=== PATIENT | female | born 1945 | race Caucasian/White ===

== ENCOUNTER → 2023-07-16 | Outpatient (CLI) | payer MEDICARE, SELFPAY ==
--- NOTE | 2023-07-16 09:46 | NM_ITS ---
CLINICAL: 78-year-old female with history of compression fracture. WHOLE BODY 99m Tc MDP RADIONUCLIDE BONE SCINTIGRAPHY COMPARISON: None available FINDINGS: Following the intravenous administration of 27.9 mCi of 99m Tc MDP, whole body bone images reveal: 1. Increased radiopharmaceutical concentration is defined in the fourth lumbar vertebra diffusely and right mid femoral diaphysis, right distal femoral metaphysis, upper thoracic spine posteriorly on the left. 2. Facilitated uptake is noted in the bilateral wrist articulations, the medial tibial compartment of the right knee, sternoclavicular compartment of the right shoulder. 3. The remaining skeletal structures are scintigraphically unremarkable with normal-appearing renal images and urinary bladder activity identified. NM/Bone Scan Whole Body IMPRESSION: 1. The increase in tracer uptake noted in the fourth lumbar vertebra is commensurate with trauma-compression fracture. In patients > 65 years of age, increased radiopharmaceutical concentration on bone scintigraphy in uncomplicated documented fracture, may take > 18 months for complete resolution. (Josh et al, Seminars of [employer] Medicine, 13:104, 1983). 2. Enhanced tracer concentration defined in the right mid femoral diaphysis and distal right femoral metaphysis, the upper thoracic spine posteriorly on the left may be further investigated with plain film radiography. 3. Increased radiotracer defined in the wrist articulations bilaterally and right knee, sternoclavicular compartment of the right shoulder. Electronically Signed: Luis Sykes DO at 13:51 EDT ,
== END | disposition home or self-care (01) ==
PROVIDERS: PCP Family Medicine
DX: S22.000A Wedge compression fracture of unspecified thoracic vertebra, initial encounter for closed fracture (principal)
CPT/HCPCS: 78306; A9503

== ENCOUNTER → 2024-05-10 | Outpatient (CLI) | payer MEDICARE, SELFPAY ==
--- NOTE | 2024-05-10 14:36 | ST.MBS ---
Modified Barium Swallow Patient Information Study Date: 05/10/24 Study Time: 13:00 Diagnosis: Dysphagia R13.10 Referring Physician: Obdulia Martinez Reason for Referral: Assess swallow function, assess risk for aspiration, and determine recommendations for least restrictive diet textures and compensatory strategies to facilitate safe po intake. Medical History: PMH per patient report: Kyphosis, compressed cervical vertebrae, fractures of vertebrae w/ no spinal surgery required, falls w/ injury of head and neck (no brain injury or cervical fx from falls, but laceration requiring ariel in back of head), sx for removal of portion of stomach and small bowel (1997), COPD, asthma, PNA 2X (>30 years ago). The patient reports swallowing difficulty for ~1 year characterized by difficulty getting food/drink/pills down, sensation of food/drink/pills caught in the throat, pills will come back up, fear of choking 1X taking medication but didn't require the Heimlich as the patient coughed to clear it out. This swallowing difficulty occurs at least 5X/week. She eats most foods, but has to cut them very small. She does better drinking via straw. Current Diet Ordered: Regular textures cut into small bites/Thin liquids Dentition: Natural Teeth and Missing Teeth (lower partials not present) Mental Status: WNL Respiratory Status: Oxygenating on Room Air Penetration-Aspiration Scale Penetration-Aspiration Scale: OBJECTIVE ASSESSMENT OF SWALLOW FUNCTION (QUANTITATIVE ? PER TRIAL): PENETRATION / ASPIRATION SCALE (AGUILAR): 1 = does not enter airway 2 = enters airway/above vocal folds/ejected 3 = enters airway/above vocal folds/not ejected 4 = enters airway/contacts vocal folds/ejected 5 = enters airway/contacts vocal folds/not ejected 6 = enters airway/below vocal folds/ejected 7 = enters airway/below vocal folds/not ejected despite effort 8 = enters airway/below vocal folds/no effort VIDEOFLOROSCOPIC SCALE SCORE (AGUILAR): Grade I = aspiration of material that has penetrated into the laryngeal vestibule, intact cough reflex Grade II = aspiration < 10 % of the bolus, intact cough reflex Grade III = aspiration of < 10 % of the bolus, reduced cough reflex or aspiration of > 10 % of the bolus, intact cough reflex Grade IV = aspiration of > 10 % of the bolus, reduced cough reflex Penetration-Aspiration Scale Score Thin Liquid via teaspoon: Result: 2= enter airway/above vocal folds/ejected Thin Liquid via teaspoon Trial 2: Result: 1= does not enter airway Thin Liquid via large single sip: cup: Result: 2= enter airway/above vocal folds/ejected [place] Thick Liquid via large single sip: cup: Result: 2= enter airway/above vocal folds/ejected Pudding via teaspoon: Result: 1= does not enter airway Comment: Esophageal screen - Complete clearance. 1/4 Cookie: Result: 1= does not enter airway Thin Liquid via single sip: straw: Result: 3= enters airways/above vocal folds/not ejected Comment: Esophageal screen - Retention of thin liquid barium (w/ cookie suspended in the barium) throughout the lower and middle esophagus. Portion of cookie appeared un-chewed. Thin Liquid via single sip: straw Effortful swallow: Result: 2= enter airway/above vocal folds/ejected Comment: Esophageal screen - This second liquid wash cleared cookie and barium through the LES. Barium tablet w/ water liquid washes: Result: 1= does not enter airway Comment: Esophageal screen - Retention of pill in throat requiring multiple swallows to clear. Retention of pill in upper esophagus, which cleared to the LES w/ pudding wash. Pudding retention throughout middle and lower esophagus. Barium tablet w/ Pudding: Comment: Attempted 2X, patient able to clear the pudding from the oral cavity, but not the tablet. PAS of 1 for pudding. Tablet was spit out. Water provided. Pudding retention in the lower and middle esophagus. Thin Liquid via single sip: straw Trial 2: Result: 2= enter airway/above vocal folds/ejected Comment: Esophageal screen - Second liquid wash cleared a majority of esophageal retention. Mild retention of liquid barium remained in the middle and lower esophagus. Oral Phase Labial Seal: No Labial Escape Tongue Control During Bolus Hold: Posterior escape of less than half of bolus Bolus Preparation/Mastication: Disorganized chewing/mashing with solid pieces of bolus unchewed Bolus Transport/Lingual Motion: Slowed tongue motion Oral Residue: Residue collection on oral structures Pharyngeal Phase Initiation of Pharyngeal Swallow: Bolus head in pyriforms Soft Palate Elevation: Trace column of contrast/air between soft palate and pharyngeal wall Laryngeal Elevation: Partial superior movement thyroid cart/partial apprx aryt-epig petiole Anterior Hyoid Excursion: Partial anterior movement Epiglottic Movement: Complete inversion Laryngeal Vestibule Closure at Height of Swallow: Incomplete; narrow column of air/contrast in laryngeal vestibule Pharyngeal Stripping Wave: Present - diminished Pharyngoesophageal Segment Opening: Parital distension and partial duration; parital obstruction of flow Tongue Base Retraction: Wide column of contrast between tongue base & post. pharyngeal wall Pharyngeal Residue: Collection of residue within or on pharyngeal structures Esophageal Phase Esophageal Clearance: Esophageal retention w/ retrograde flow below pharyngoesophageal seg. Diagnosis/Impression Diagnosis: Moderate oropharyngeal dysphagia R13.12; Esophageal dysphagia R13.14 Impression: The oral phase is marked by... -Premature posterior loss of >1/2 of thin liquids to the pharynx w/ bolus head in the pyriforms. -Slowed tongue motion for A-P transport. -Mild-moderate oral residue, mostly clearing w/ independent use of second swallow as needed. -Decreased mastication w/ portion of cookie appearing un-chewed. The pharyngeal phase is marked by... -Delayed swallow onset. -Decreased pharyngeal motility due to decreased TB retraction, pharyngeal stripping wave, and UES opening/duration w/ moderate pharyngeal residue of cookie, requiring a second swallow and liquid wash to mostly clear. Patient independently utilizes a double swallow each bite/sip. Retention of barium tablet in the pharynx, which cleared w/ additional swallows. Patient is a high choking risk w/ -Decreased airway closure during the swallow w/ consistent laryngeal penetration of thin liquids, which did not fully eject from the laryngeal vestibule 1X. No aspiration observed during the study. Effortful swallow was effective in improving pharyngeal clearance of thin liquids on the first swallow and decreasing risk for post prandial aspiration of liquid residue. The esophageal phase is marked by... -Retention of pudding and cookie in the middle and lower esophagus, both requiring 2 liquid washes to mostly clear. -Retention of barium tablet in the upper esophagus, which cleared w/ pudding wash to the LES. Recommendations Diet: Soft and Bite Sized Textures (IDDSI Level 6) and Thin Liquids Comment: Medications crushed in puree (applesauce, yogurt, pudding). If medication is unable to be crushed, please discuss w/ physician or pharmacist as patient is at high risk for choking w/ whole medications. Compensatory Strategies: Small Bites (Effortful/hard swallows), Small Sips, Slow Rate, Multiple Swallows, Alternate bites/solids and sips/liquids (2 sips after each bite), Sitting upright and Remain sitting upright for 30 minutes after PO intake Recommend Repeat Modified Barium Swallow: TBD Need for Skilled Speech Therapy Services: Yes Comment: -Train the patient in use of strategies to decrease risk for aspiration, reflux aspiration, and choking. -Ongoing assessment of diet tolerance of recommended textures. Training in diet texture testing and preparation w/ soft and bite size textures. -Train the patient in oropharyngeal exercise program to improve bolus control, swallow onset, airway closure, and pharyngeal motility (lingual resistance, Janine, Effortful, Raina). Recommended Referrals: GI Consult Education Completed: 1. Described result of evaluation., 2. Pt understands evaluation & agrees with goals and treatment plan. and 7. Pt requires further education on strategies & risks. Status Active ST Patient: Active Contact Information [facility] Speech Therapy:: Stephanie Noonan M.A. CCC-CORK INSULATOR HELPER? Speech-Language Pathologist?? [facility] [address] [place] [address]? [email or web address]?? [phone]
== END | disposition home or self-care (01) ==
LOC: RAD 12:34
PROVIDERS: PCP Family Medicine; Referring Provider Family Medicine; Visit Provider Family Medicine
DX: R13.19 Other dysphagia (principal)
CPT/HCPCS: 74230